=== PATIENT | female | born 1985 | race African-American/Black ===

== ENCOUNTER 2017-06-25 16:28 | Emergency (ER) | payer OTHER ==
[2017-06-25] MEDS ORDERED: AMOXicillin 250 MG CAP ONE (16:48)
[2017-06-25] MEDS ORDERED: Dexamethasone 4 mg/ml Vial ONE (16:48)
== END 2017-06-25 16:54 | disposition home or self-care (01) ==
LOC: BURERS 16:28
DX: H66.91 Otitis media, unspecified, right ear (principal)
CPT/HCPCS: 99282; J1100